=== PATIENT | male | born 1990 | race African-American/Black ===

== ENCOUNTER 2016-08-21 09:08 | Emergency (ER) | payer OTHER ==
--- NOTE | 2016-08-21 10:06 | REP ---
Clinical: Right scapular pain. Comparison: none. Technique: PA and lateral. Findings: The mediastinum and cardiac silhouette are normal. The lung langley are clear and without acute consolidation, effusion, or pneumothorax. The skeletal structures are intact and normal. Impression: 1. No acute cardiopulmonary process. Signed by Oliver Yuan MD 08/21/2016 09:57 A
--- NOTE | 2016-08-21 11:03 | EDDOCDS ---
Nurse's Notes [facility] Name: Arin Newby Age: 25 yrs Sex: Male : 1990 Arrival Date: 08/21/2016 Time: 09:08 Bed PR Private MD: LIMA KIMBROUGH Diagnosis: Muscle spasm of back-right rhomboids Presentation: 08/21 09:14 Presenting complaint: Patient states: Pt presents with c/o sharp knife like pain under dls right shoulder blade onset yesterday denies injury pain increases with movement and breathing. Adult Sepsis Screening: The patient does not have new or worsening altered mentation. Patient's respiratory rate is less than 22. Systolic blood pressure is greater than 100. Patient has a qSOFA score of 0- Negative Sepsis Screen. Suicide/Homicide risk assessment- the patient denies having any suicidal and/or homicidal ideations and does not present with any other emotional, behavioral or mental health complaints. 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 Transition of care: patient was not received from another setting of care. 09:14 Acuity: BRITNI Level 4 dls 09:14 Method Of Arrival: Walkin/Carried/Asstd dls Triage Assessment: 09:16 General: Appears distressed, uncomfortable, well developed, well nourished, well dls groomed, Behavior is cooperative. Pain: Pain currently is 6 out of 10 on a pain scale. HIV screening NA for this visit Offered previously. Historical: - Allergies: no known allergies; - Home Meds: 1. none - PMHx: none; - PSHx: Hernia repair; - Social history: Smoking status: Patient/guardian denies using No barriers to communication noted, The patient speaks fluent Mongolian. - Family history: Not pertinent. - : The pt / caregiver states he / she is not on anticoagulants. Home medication list is obtained from the patient. - Exposure Risk Screening:: None identified. Screenin:58 Screening information is obtained from the patient. Primary language is Mongolian. Fall dls risk: No risks identified. Assistance ADL's: requires no assistance with activities of daily living. Abuse/DV Screen: The patient / caregiver reports he/she is: not in a situation that causes fear, pain or injury. Nutritional screening: No deficits noted. Advance Directives: Currently, there is no health care proxy. There is no active DNR order. There is no living will. There is no Power of Spring Assembler Supervisor. Advance directive information has not previously been placed in an [facility] medical record. home support is adequate. Assessment: 10:57 General: Appears uncomfortable, well developed, well nourished, well groomed, Behavior dls is cooperative. Awake, alert, oriented. Skin warm and dry. Moves all extremities. Bilateral breath sounds clear. Respirations unlabored. Abdomen soft, non-tender. No apparent distress. The patient / caregiver is instructed regarding the plan of care and ED course. Vital Signs: 09:10 BP 112 / 79; Pulse 72; Resp 18; Temp 97.8(O); Pulse Ox 99% on R/A; Weight 81.65 kg (R); ct3 Height 5 ft. 10 in. (177.80 cm) (R); Pain 7/10; 09:10 Body Mass Index 25.83 (81.65 kg, 177.80 cm) ct3 Vitals: 09:10 Log In Time: August 21, 2016 at 09:07. ct3 ED Course: 09:09 Patient visited by Chantale [place] PCA. ct3 09:09 [facility] is Private Physician. ct3 09:09 Patient moved to Waiting ct3 09:11 Patient moved to Pre RCE ct3 09:15 Triage Initiated dls 09:21 Patient moved to Triage 2 kcs 09:22 Omkar Jones PA-C is PHCP. ar2 09:22 Romy Barnett MD is Attending Physician. ar2 09:22 Patient visited by Omkar Jones PA-C. ar2 09:35 Patient moved to TR3 kcs 10:21 Chest, 2 View (pa\E\lat) Returned. EDMS 10:23 Patient moved to PR2 / 26 kcs 10:33 [facility] [place] Payment Agreement was scanned into Fosubo and attached to record. mm15 10:[address] [facility] is Referral Physician. ar2 10:46 Patient name changed from Naseer\S\\S\Odin\S\ to Naseer\S\ \S\Odin. EDMS 10:58 Patient has correct armband on for positive identification. Bed in low position. Call dls light in reach. 10:59 No IV's were initiated during this patient's visit. No procedures done that require dls assistance. Order Results: Radiology Order: Chest, 2 View (pa\E\lat) Test: Chest, 2 View (pa\E\lat) REASON FOR EXAMINATION: right scapular pain r/o spont pneumo; Clinical: Right scapular pain.; ; Comparison: none.; ; Technique: PA and lateral.; ; Findings:; The mediastinum and cardiac silhouette are normal. The lung alngley are clear and; without acute consolidation, effusion, or pneumothorax. The skeletal structures; are intact and normal.; ; Impression:; 1. No acute cardiopulmonary process.; ; ; Signed by; Oliver Yuan MD 08/21/2016 09:57 A; Outcome: 10:40 Discharge ordered by Provider. ar2 10:58 The following High Risk Discharge criteria are identified: None. Discharged to home dls ambulatory. Condition: stable. Discharge instructions given to patient, Instructed on discharge instructions, follow up and referral plans. medication usage, Demonstrated understanding of instructions, medications, Pt was receptive of discharge instructions/ teaching. Prescriptions given X 2. No special radiology studies were completed. 11:00 Discharge Assessment: Patient awake, alert and oriented x 3. No cognitive and/or dls functional deficits noted. Patient verbalized understanding of disposition instructions. patient administered narcotics - no. Property :Personal belongings accompany Pt. 11:02 Patient left the ED. dls Signatures: Dispatcher [employer] Evon Quiles RN RN kcs Scott, Debra, RN RN dls Robertshaw, Aaron, PA-C PAMandy ar2 Chantale [place] PCA HYGIENE COORDINATOR ct3 Allen Townsend mm15 MTDD
--- NOTE | 2016-08-21 11:03 | EDDOCDS ---
Physician Documentation [facility] Name: Arin Newby Age: 25 yrs Sex: Male : 1990 Arrival Date: 08/21/2016 Time: 09:08 Bed PR Private MD: LIMA KIMBROUGH Disposition: 08/21/16 10:40 Discharged to Home/Self Care. Impression: Muscle spasm of back - right rhomboids. - Condition is Stable. - Discharge Instructions: Muscle Cramps and Spasms. - Prescriptions for Naprosyn 500 mg Oral Tablet - take 1 tablet by ORAL route 2 times per day take with food; 30 tablet. Cyclobenzaprine 10 mg Oral Tablet - take 1 tablet by ORAL route At bedtime As needed; 7 tablet. - Medication Reconciliation, Local Pharmacy Hours form. - Follow up: [facility]; When: 2 - 3 days; Reason: Recheck today's complaints. Follow up: Emergency Department; When: As needed; Reason: Trouble breathing, Worsening of conditions. - Problem is new. - Symptoms are unchanged. Historical: - Allergies: no known allergies; - Home Meds: 1. none - PMHx: none; - PSHx: Hernia repair; - Social history: Smoking status: Patient/guardian denies using No barriers to communication noted, The patient speaks fluent Portuguese. - Family history: Not pertinent. - : The pt / caregiver states he / she is not on anticoagulants. Home medication list is obtained from the patient. - Exposure Risk Screening:: None identified. Vital Signs: 08/21 09:10 BP 112 / 79; Pulse 72; Resp 18; Temp 97.8(O); Pulse Ox 99% on R/A; Weight 81.65 kg / ct3 180.01 lbs (R); Height 5 ft. 10 in. (177.80 cm) (R); Pain 7/10; 09:10 Body Mass Index 25.83 (81.65 kg, 177.80 cm) ct3 MDM: 09:31 Chest, 2 View (pa\E\lat) Ordered. EDMS 10:31 Financial registration complete. mm15 10:33 [facility] Payment Agreement was scanned into Turbulenz and attached to record. mm15 Signatures: Dispatcher [facility] EDMS Chinyere Tavera RN RN Omkar Jorge PA-C PAMandy ar2 Allen Townsend mm15 The chart was reviewed and I authenticate all verbal orders and agree with the evaluation and treatment provided.Attachments: 10:33 [facility] Payment Agreement mm15 MTDD
--- NOTE | 2016-08-23 12:03 | EDDOCDS ---
Physician Documentation [facility] Name: Arin Newby Age: 25 yrs Sex: Male : 1990 Arrival Date: 08/21/2016 Time: 09:08 Bed PR Private MD: LIMA KIMBROUGH Disposition: 08/21/16 10:40 Discharged to Home/Self Care. Impression: Muscle spasm of back - right rhomboids. - Condition is Stable. - Discharge Instructions: Muscle Cramps and Spasms. - Prescriptions for Naprosyn 500 mg Oral Tablet - take 1 tablet by ORAL route 2 times per day take with food; 30 tablet. Cyclobenzaprine 10 mg Oral Tablet - take 1 tablet by ORAL route At bedtime As needed; 7 tablet. - Medication Reconciliation, Local Pharmacy Hours form. - Follow up: [facility]; When: 2 - 3 days; Reason: Recheck today's complaints. Follow up: Emergency Department; When: As needed; Reason: Trouble breathing, Worsening of conditions. - Problem is new. - Symptoms are unchanged. Historical: - Allergies: no known allergies; - Home Meds: 1. none - PMHx: none; - PSHx: Hernia repair; - Social history: Smoking status: Patient/guardian denies using No barriers to communication noted, The patient speaks fluent Armenian. - Family history: Not pertinent. - : The pt / caregiver states he / she is not on anticoagulants. Home medication list is obtained from the patient. - Exposure Risk Screening:: None identified. Vital Signs: 08/21 09:10 BP 112 / 79; Pulse 72; Resp 18; Temp 97.8(O); Pulse Ox 99% on R/A; Weight 81.65 kg / ct3 180.01 lbs (R); Height 5 ft. 10 in. (177.80 cm) (R); Pain 7/10; 09:10 Body Mass Index 25.83 (81.65 kg, 177.80 cm) ct3 MDM: 09:31 Chest, 2 View (pa\E\lat) Ordered. EDMS 10:31 Financial registration complete. mm15 10:33 [facility] Payment Agreement was scanned into R[employer] and attached to record. mm15 15:43 T-Sheet-- Draft Copy was scanned into Rack[employer] and attached to record. gb 15:43 Radiology Report was scanned into R[employer] and attached to record. gb Signatures: Dispatcher [employer] EDChinyere Acuña RN RN dls Winnie Burris, Reg Reg gb Omkar Jones, CINDY WHITE ar2 Allen Townsend mm15 The chart was reviewed and I authenticate all verbal orders and agree with the evaluation and treatment provided.Attachments: 10:33 [facility] Payment Agreement mm15 15:43 T-Sheet-- Draft Copy gb Chart Complete MTDD
--- NOTE | 2016-08-23 12:03 | EDDOCDS ---
Nurse's Notes [facility] Name: Arin Newby Age: 25 yrs Sex: Male : 1990 Arrival Date: 08/21/2016 Time: 09:08 Bed PR Private MD: LIMA KIMBROUGH Diagnosis: Muscle spasm of back-right rhomboids Presentation: 08/21 09:14 Presenting complaint: Patient states: Pt presents with c/o sharp knife like pain under dls right shoulder blade onset yesterday denies injury pain increases with movement and breathing. Adult Sepsis Screening: The patient does not have new or worsening altered mentation. Patient's respiratory rate is less than 22. Systolic blood pressure is greater than 100. Patient has a qSOFA score of 0- Negative Sepsis Screen. Suicide/Homicide risk assessment- the patient denies having any suicidal and/or homicidal ideations and does not present with any other emotional, behavioral or mental health complaints. 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 Transition of care: patient was not received from another setting of care. 09:14 Acuity: BRITNI Level 4 dls 09:14 Method Of Arrival: Walkin/Carried/Asstd dls Triage Assessment: 09:16 General: Appears distressed, uncomfortable, well developed, well nourished, well dls groomed, Behavior is cooperative. Pain: Pain currently is 6 out of 10 on a pain scale. HIV screening NA for this visit Offered previously. Historical: - Allergies: no known allergies; - Home Meds: 1. none - PMHx: none; - PSHx: Hernia repair; - Social history: Smoking status: Patient/guardian denies using No barriers to communication noted, The patient speaks fluent Armenian. - Family history: Not pertinent. - : The pt / caregiver states he / she is not on anticoagulants. Home medication list is obtained from the patient. - Exposure Risk Screening:: None identified. Screenin:58 Screening information is obtained from the patient. Primary language is Armenian. Fall dls risk: No risks identified. Assistance ADL's: requires no assistance with activities of daily living. Abuse/DV Screen: The patient / caregiver reports he/she is: not in a situation that causes fear, pain or injury. Nutritional screening: No deficits noted. Advance Directives: Currently, there is no health care proxy. There is no active DNR order. There is no living will. There is no Power of Architectural Job Captain. Advance directive information has not previously been placed in an [facility] medical record. home support is adequate. Assessment: 10:57 General: Appears uncomfortable, well developed, well nourished, well groomed, Behavior dls is cooperative. Awake, alert, oriented. Skin warm and dry. Moves all extremities. Bilateral breath sounds clear. Respirations unlabored. Abdomen soft, non-tender. No apparent distress. The patient / caregiver is instructed regarding the plan of care and ED course. Vital Signs: 09:10 BP 112 / 79; Pulse 72; Resp 18; Temp 97.8(O); Pulse Ox 99% on R/A; Weight 81.65 kg (R); ct3 Height 5 ft. 10 in. (177.80 cm) (R); Pain 7/10; 09:10 Body Mass Index 25.83 (81.65 kg, 177.80 cm) ct3 Vitals: 09:10 Log In Time: August 21, 2016 at 09:07. ct3 ED Course: 09:09 Patient visited by Chantale [place] PCA. ct3 09:09 [facility] is Private Physician. ct3 09:09 Patient moved to Waiting ct3 09:11 Patient moved to Pre RCE ct3 09:15 Triage Initiated dls 09:21 Patient moved to Triage 2 kcs 09:22 Omkar Jones PA-C is PHCP. ar2 09:22 Romy Barnett MD is Attending Physician. ar2 09:22 Patient visited by Omkar Jones PA-C. ar2 09:35 Patient moved to TR3 kcs 10:21 Chest, 2 View (pa\E\lat) Returned. EDMS 10:23 Patient moved to PR2 / 26 kcs 10:33 [facility] [place] Payment Agreement was scanned into Momo and attached to record. mm15 10:40 [facility] is Referral Physician. ar2 10:46 Patient name changed from Naseer\S\\S\Odin\S\ to Naseer\S\ \S\Odin. EDMS 10:58 Patient has correct armband on for positive identification. Bed in low position. Call dls light in reach. 10:59 No IV's were initiated during this patient's visit. No procedures done that require dls assistance. 15:43 T-Sheet-- Draft Copy was scanned into Momo and attached to record. 15:43 Radiology Report was scanned into Momo and attached to record. gb Order Results: Radiology Order: Chest, 2 View (pa\E\lat) Test: Chest, 2 View (pa\E\lat) REASON FOR EXAMINATION: right scapular pain r/o spont pneumo; Clinical: Right scapular pain.; ; Comparison: none.; ; Technique: PA and lateral.; ; Findings:; The mediastinum and cardiac silhouette are normal. The lung langley are clear and; without acute consolidation, effusion, or pneumothorax. The skeletal structures; are intact and normal.; ; Impression:; 1. No acute cardiopulmonary process.; ; ; Signed by; Oliver Yuan MD 08/21/2016 09:57 A; Outcome: 10:40 Discharge ordered by Provider. ar2 10:58 The following High Risk Discharge criteria are identified: None. Discharged to home dls ambulatory. Condition: stable. Discharge instructions given to patient, Instructed on discharge instructions, follow up and referral plans. medication usage, Demonstrated understanding of instructions, medications, Pt was receptive of discharge instructions/ teaching. Prescriptions given X 2. No special radiology studies were completed. 11:00 Discharge Assessment: Patient awake, alert and oriented x 3. No cognitive and/or dls functional deficits noted. Patient verbalized understanding of disposition instructions. patient administered narcotics - no. Property :Personal belongings accompany Pt. 11:02 Patient left the ED. dls Signatures: Dispatcher [facility] Evon Quiles RN RN kcs Scott, Debra, RN RN dls Barnhardt, Gloria, Reg Reg Omkar Jimenez, CINDY PAMandy ar2 Chantale [place], ENVIRONMENTAL HEALTH SANITARIAN ENVIRONMENTAL HEALTH SANITARIAN ct3 Allen Townsend mm15 Chart Complete MTDD
--- NOTE | 2016-08-23 12:03 | EDDOCDS ---
Physician Documentation [facility] Name: Arin Newby Age: 25 yrs Sex: Male : 1990 Arrival Date: 08/21/2016 Time: 09:08 Bed PR Private MD: LIMA KIMBROUGH Disposition: 08/21/16 10:40 Discharged to Home/Self Care. Impression: Muscle spasm of back - right rhomboids. - Condition is Stable. - Discharge Instructions: Muscle Cramps and Spasms. - Prescriptions for Naprosyn 500 mg Oral Tablet - take 1 tablet by ORAL route 2 times per day take with food; 30 tablet. Cyclobenzaprine 10 mg Oral Tablet - take 1 tablet by ORAL route At bedtime As needed; 7 tablet. - Medication Reconciliation, Local Pharmacy Hours form. - Follow up: [facility]; When: 2 - 3 days; Reason: Recheck today's complaints. Follow up: Emergency Department; When: As needed; Reason: Trouble breathing, Worsening of conditions. - Problem is new. - Symptoms are unchanged. Historical: - Allergies: no known allergies; - Home Meds: 1. none - PMHx: none; - PSHx: Hernia repair; - Social history: Smoking status: Patient/guardian denies using No barriers to communication noted, The patient speaks fluent Albanian. - Family history: Not pertinent. - : The pt / caregiver states he / she is not on anticoagulants. Home medication list is obtained from the patient. - Exposure Risk Screening:: None identified. Vital Signs: 08/21 09:10 BP 112 / 79; Pulse 72; Resp 18; Temp 97.8(O); Pulse Ox 99% on R/A; Weight 81.65 kg / ct3 180.01 lbs (R); Height 5 ft. 10 in. (177.80 cm) (R); Pain 7/10; 09:10 Body Mass Index 25.83 (81.65 kg, 177.80 cm) ct3 MDM: 09:31 Chest, 2 View (pa\E\lat) Ordered. EDMS 10:31 Financial registration complete. mm15 10:33 [facility] Payment Agreement was scanned into [employer] and attached to record. mm15 15:43 T-Sheet-- Draft Copy was scanned into [employer] and attached to record. gb 15:43 Radiology Report was scanned into [employer] and attached to record. gb Signatures: Dispatcher [employer] EDChinyere Acuña RN RN dls Winnie Burris, Reg Reg gb Omkar Jones, CINDY WHITE ar2 Allen Townsend mm15 The chart was reviewed and I authenticate all verbal orders and agree with the evaluation and treatment provided.Attachments: 10:33 [facility] Payment Agreement mm15 15:43 T-Sheet-- Draft Copy gb Chart Complete MTDD
== END 2016-08-21 11:02 | disposition home or self-care (01) ==
LOC: M ED 09:08
DX: M62.830 Muscle spasm of back (principal)